=== PATIENT | female | born 1965 | race African-American/Black ===

== ENCOUNTER 2021-02-15 06:32 | Emergency (ER) | payer OTHER ==
[~2021-02-15] VITALS: Ht 160 cm; Wt 52.0 kg
[2021-02-15] MEDS ORDERED: DEXTROSE 50% WATER 50ML SYRINGE IV ONE ×2 (07:00→07:46)
[2021-02-15] MEDS ORDERED: SODIUM CHLORIDE 0.9% 1,000 ML IV ONE (07:00)
[2021-02-15] MEDS ORDERED: EPINEPHRINE 0.1MG/ML (1:10,000) 10ML SYR ONE ×2 (07:50→08:36)
[2021-02-15 08:14] LABS: BASOPHILS % 0.8 % (0.0-2.0); EOSINOPHILS % 0.1 % (0.0-5.0); HEMATOCRIT. 28.4 % (36.0-48.0); HEMOGLOBIN. 7.6 g/dL (12.0-16.0); LYMPHOCYTES % 48.2 % (20.0-50.0); MEAN CORPUSCULAR HEMOGLOBIN 25.2 pg (28.0-32.0); MEAN CORPUSCULAR VOLUME 94.6 fL (81.0-99.0); MEAN PLATELET VOLUME 8.7 fl (7.4-10.4); MONOCYTES % 7.6 % (2.0-8.0); NEUTROPHILS % 43.3 % (40.0-76.0); PLATELET 117 x1000/uL (130-400)
[2021-02-15 08:18] LABS: CHLORIDE 101 mEq/L (98-107)
[2021-02-15 08:19] LABS: INR 2.9
[2021-02-15 08:29] LABS: HCG SCREEN NEGATIVE
[2021-02-15] MEDS ORDERED: FUROSEMIDE 100MG/10ML VIAL IVP ONE (08:30)
[2021-02-15 09:07] LABS: PLATELET ESTIMATE DECREASED
[2021-02-15] MEDS ORDERED: NALOXONE HCL 0.4 MG/ML 1ML VIAL ONE (09:17)
[2021-02-15] MEDS ORDERED: NOREPINEPHRINE 8MG/250ML PMX 250 ML IV SCH (09:30)
[2021-02-15] MEDS ORDERED: NOREPINEPHRINE 8 MG in DEXTROSE 5% WATER 250 ML IV PRN (09:30)
[2021-02-15] MEDS ORDERED: NALOXONE HCL 1 MG/ML 2ML VIAL IV ONE ×2 (09:45→10:00)
[2021-02-15] MEDS ORDERED: ATROPINE SULFATE 1MG/10ML SYR ONE (09:46)
[2021-02-15] MEDS ORDERED: NALOXONE 8 MG in DEXT 5% WATER 242 ML IV ONE (10:00)
[2021-02-15 11:25] VITALS: BP 0/0
== END 2021-02-15 11:24 ==
LOC: EDBD 06:32 → ER 06:32
DX: R41.82 Altered mental status, unspecified (principal); T68.XXXA Hypothermia, initial encounter; R00.1 Bradycardia, unspecified; I50.89 Other heart failure
CPT/HCPCS: 31500; 36415; 71045; 80053; 82962; 83880; 84484; 84703; 85025; 85610; 86850; 86900; 86901; 86920; 87040; 87077; 87186; 92950; 96374; 99285; A4217; J0461; J1940; J2310; J3490; J7030; J7060; Z7610; P9016